=== PATIENT | male | born 1970 | race Caucasian/White ===

== ENCOUNTER → 2019-08-10 | Outpatient (CLI) | payer OTHER ==
[2016-08-08 08:59] VITALS: BP 127/85
[~2019-08-10] MED LIST: ACET650S PO; ATOR20TA58 PO; CALC1TAB59 PO; CARB200T PO; DOCU100C28 PO; FAMO-63 PO; HYDR28.423 TP; LEVE500T6 PO; LISI10TA2 PO; LORA10TA3 PO; NYST1POW5 MC; OMEP20CA16 PO; ONDA4TAB12 PO; POTASSIUM CHLO10 ME1 PO
--- NOTE | 2019-08-10 14:41 | RAD ---
Left lower extremity arterial duplex ultrasound 08/10/2019 INDICATION: Nonhealing wound, left fifth toe COMPARISON STUDY: None Discussion: Ultrasound evaluation of the major arteries of left lower extremity were performed including color Doppler imaging spectral analysis. Essentially normal waveforms and velocities are seen throughout the major arteries of left lower extremity. No significant atherosclerotic plaquing is identified. No high-grade visual stenosis is identified on color Doppler imaging. No focal elevation in velocity suggestive of hemodynamically significant stenosis is seen. IMPRESSION: Unremarkable sonographic appearance of the major arteries of left lower extremity Electronically signed by: Freddie Ferguson MD (08/10/2019 2:38 PM) [facility]
== END | disposition home or self-care (01) ==
LOC: US 12:05
PROVIDERS: ATTEND Emergency Medicine Undersea and Hyperbaric Medicine
DX: S91.205A Unspecified open wound of left lesser toe(s) with damage to nail, initial encounter (principal); X58.XXXA Exposure to other specified factors, initial encounter; Y93.89 Activity, other specified; Y92.89 Other specified places as the place of occurrence of the external cause; Y99.8 Other external cause status
CPT/HCPCS: 93926

== ENCOUNTER 2019-09-09 15:49 | Emergency (ER) | payer OTHER ==
[~2019-09-09] VITALS: Ht 165.1 cm; Wt 45.4 kg
[~2019-09-09 15:49] MED LIST changes: -ACET650S PO; -HYDROmorphone 2 MG/ML VIAL IV PRN; -IV RINGERS,LACTATED 1000ML 1,000 ML IV ONE; -IV RINGERS,LACTATED 1000ML 1,000 ML IV SCH; -LIDOCAINE 2% PF 5 ML VIAL. ONE; -MORPHINE SULFATE 2 MG/ML VIAL. IV PRN; -ONDA4TAB12 PO; -ONDANSETRON PF 4 MG/2 ML VIAL. IV PRN; -PROCHLORPERAZINE 10 MG/2 ML VIAL. IV PRN; -PROPOFOL 20 ML IV ONE; -fentaNYL PF VIAL 100 MCG/2 ML VIAL IV PRN
[2019-09-09] MEDS ORDERED: ONDANSETRON PF 4 MG/2 ML VIAL. IVP ONE (17:15)
[2019-09-09] MEDS ORDERED: IV NORMAL SALINE 1000ML BAG 1,000 ML IV ONE (17:15)
[2019-09-09] MEDS ORDERED: FAMOTIDINE 20 MG/2 ML VIAL IVP ONE (17:15)
[2019-09-09 17:20] VITALS: BP 133/58
[2019-09-09 17:37] LABS: BASO % 0 % (0-3); EOS % 0 % (0-3); HEMATOCRIT 39.9 % (39.0-53.0); HEMOGLOBIN 13.1 g/dL (13.0-17.5); LYMPH # 1.4 x10^3/uL (1.0-4.8); LYMPH % 11 % (24-48); MEAN CORPUSCULAR HEMOGLOBIN 29 pg (25-35); MEAN CORPUSCULAR HGB CONC 33 g/dL (31-37); MEAN CORPUSCULAR VOLUME 89 fL (79-100); MONO # 1.1 x10^3/uL (0.0-1.1); MONO % 8 % (0-9); NEUT % 81 % (31-73); PLATELET COUNT 191 x10^3/uL (140-400); RED BLOOD COUNT 4.51 x10^6/uL (4.30-5.70); WHITE BLOOD COUNT 13.6 x10^3/uL (4.0-11.0)
[2019-09-09 17:44] LABS: CALCIUM 9.2 mg/dL (8.5-10.1); CREATININE 0.6 mg/dL (0.7-1.3); GFR 142.6; POTASSIUM 3.5 mmol/L (3.5-5.1)
[2019-09-09 17:50] LABS: ALBUMIN 3.7 g/dL (3.4-5.0); ALBUMIN/GLOBULIN RATIO 0.9 (1.0-1.7); TOTAL BILIRUBIN 0.2 mg/dL (0.2-1.0); TOTAL PROTEIN 7.6 g/dL (6.4-8.2)
[2019-09-09] MEDS ORDERED: CONTRAST GIVEN. MC PRN (18:00)
--- NOTE | 2019-09-09 18:24 | RAD ---
Exam: CT abdomen and pelvis with contrast INDICATION: Vomiting post colonoscopy TECHNIQUE: Sequential axial images through the abdomen and pelvis obtained following the administration of 75 mL of Omni 300 IV contrast. Sagittal and coronal reformatted images were reconstructed from the axial data and reviewed. Comparisons: None FINDINGS: Heart size is normal. No pericardial effusion. Visualized lung bases are clear. No pleural effusion. Liver, pancreas, and adrenals are unremarkable. Spleen is not enlarged. Kidneys demonstrate symmetric enhancement. No perinephric inflammation or hydronephrosis. No renal or ureteral calculi are identified. Bladder is partially distended and appears thin-walled. Prostate is not enlarged. Bilateral undescended testicles are noted within the inguinal canals. There is a left lower quadrant ostomy. The remainder of the large and small bowel are unremarkable. No free intra-abdominal air or fluid. No obstruction. Moderate-sized hiatal hernia is noted. Abdominal aorta has a normal course and caliber. Abdominal vasculature is patent. No enlarged abdominal lymph nodes are identified. No suspicious osseous lesions or acute fractures. IMPRESSION: 1. No acute process identified within the abdomen or pelvis. 2. Numerous chronic findings as described above. Exposure: One or more of the following in the visualized dose reduction techniques were utilized for this examination: 1. Automated exposure control 2. Adjustment of the MA and/or KV according to patient size 3. Use of iterative of reconstructive technique Electronically signed by: Tommy Espino MD (09/09/2019 6:20 PM) [id number]
[2019-09-09] MEDS ORDERED: IOHEXOL 300 MG/ML 100ML VIAL. IV ONE (18:30)
[2019-09-09 19:15] LABS: ANISOCYTOSIS SLIGHT; MICROCYTOSIS SLIGHT; PLATELET CLUMP PRESENT; PLT ESTIMATE ADEQUATE (ADEQUATE)
[2019-09-09 19:16] LABS: OVALOCYTES OCC; SCHISTOCYTES OCC
--- NOTE | 2019-09-09 20:00 | PHYS DOC ---
Past Medical History Past Medical History: GERD, Seizure Additional Past Medical Histor: CP, quad (SON JACKSON APRN) Past Surgical History: Other Additional Past Surgical Histo: back, colostomy (SON JACKSON APRN) Smoking Status: Never Smoker Alcohol Use: None Drug Use: None (SON JACKSON APRN) Attending Signature I have participated in the care of this patient and I have reviewed and agree with all pertinent clinical information above including history, exam, and recommendations. (MAGDY FLORES MD) Adult General Chief Complaint Chief Complaint: NAUSEA/VOMITING/DIARRHA HPI HPI Patient is a 49 year old male with history of cerebral palsy, developmental delay who presents to the ED today with a caregiver stating patient had a colonoscopy done this morning, he started vomiting this afternoon. They could not tell if the vomiting is from an anesthesia or something else. They called Dr. Saldaña who requested them to come to the ED to get a CAT scan and lab work. (SON JACKSON APRN) Review of Systems Review of Systems Constitutional: Denies fever or chills [] Eyes: Denies change in visual acuity, redness, or eye pain [] HENT: Denies nasal congestion or sore throat [] Respiratory: Denies cough or shortness of breath [] Cardiovascular: No additional information not addressed in HPI [] GI: Reports vomiting. Denies abdominal pain, bloody stools or diarrhea [] : Denies dysuria or hematuria [] Musculoskeletal: Denies back pain or joint pain [] Integument: Denies rash or skin lesions [] Neurologic: Denies headache, focal weakness or sensory changes [] Endocrine: Denies polyuria or polydipsia [] All other systems were reviewed and found to be within normal limits, except as documented in this note. Review of system was obtained from caregiver (SON JACKSON APRN) Current Medications Current Medications Current Medications Medications (Trade) Dose Ordered Sig/David Start Time Stop Time Status Last Admin Dose Admin Famotidine (Pepcid Vial) 20 mg 1X ONCE 09/09/19 17:15 09/09/19 17:16 DC 09/09/19 17:41 20 MG Info (CONTRAST GIVEN -- Rx MONITORING) 1 each PRN DAILY PRN 09/09/19 18:00 09/09/19 20:50 DC Iohexol (Omnipaque 300 Mg/ml) 75 ml 1X ONCE 09/09/19 18:30 09/09/19 18:31 DC 09/09/19 18:02 75 ML Ondansetron HCl (Zofran) 4 mg 1X ONCE 09/09/19 17:15 09/09/19 17:16 DC 09/09/19 17:41 4 MG Sodium Chloride 1,000 ml @ 1,000 mls/hr 1X ONCE 09/09/19 17:15 09/09/19 18:14 DC 09/09/19 17:41 1,000 MLS/HR (MAGDY FLORES MD) Allergies Allergies Allergies Coded Allergies Type Severity Reaction Last Updated Verified No Known Drug Allergies 09/09/19 No (MAGDY FLORES MD) Physical Exam Physical Exam Constitutional: Celebral palsy patient, well nourished, no acute distress, non- toxic appearance. [] HENT: Normocephalic, atraumatic, bilateral external ears normal, oropharynx moist, no oral exudates, nose normal. [] Eyes: PERRLA, EOMI, conjunctiva normal, no discharge. [] Neck: Normal range of motion, no tenderness, supple, no stridor. [] Cardiovascular:Heart rate regular rhythm, no murmur [] Lungs & Thorax: Bilateral breath sounds clear to auscultation [] Abdomen: Colostomy on the left lower quadrant. Bowel sounds normal, soft, no tenderness, no masses, no pulsatile masses. [] Skin: Warm, dry, no erythema, no rash. [] Back: No tenderness, no CVA tenderness. [] Extremities: Contracted upper and lower extremities from cerebral palsy, No tenderness, no cyanosis, no clubbing, ROM intact, no edema. [] Neurologic: Alert and oriented, normal motor function for his condition, normal sensory function, no focal deficits noted. [] Psychologic: Affect normal, judgement normal, mood normal. [] (SON JACKSON APRN) Current Patient Data Vital Signs Vital Signs Date Time Temp Pulse Resp B/P (MAP) Pulse Ox O2 Delivery O2 Flow Rate FiO2 09/09/19 17:20 99.9 112 133/58 (83) 98 Room Air 99.9 (MAGDY FLORES MD) Lab Values Laboratory Tests Test 09/09/19 17:27 White Blood Count 13.6 x10^3/uL (4.0-11.0) H Red Blood Count 4.51 x10^6/uL (4.30-5.70) Hemoglobin 13.1 g/dL (13.0-17.5) Hematocrit 39.9 % (39.0-53.0) Mean Corpuscular Volume 89 fL (79-100) Mean Corpuscular Hemoglobin 29 pg (25-35) Mean Corpuscular Hemoglobin Concent 33 g/dL (31-37) Red Cell Distribution Width 20.0 % (11.5-14.5) H Platelet Count 191 x10^3/uL (140-400) Neutrophils (%) (Auto) 81 % (31-73) H Lymphocytes (%) (Auto) 11 % (24-48) L Monocytes (%) (Auto) 8 % (0-9) Eosinophils (%) (Auto) 0 % (0-3) Basophils (%) (Auto) 0 % (0-3) Neutrophils # (Auto) 11.0 x10^3/uL (1.8-7.7) H Lymphocytes # (Auto) 1.4 x10^3/uL (1.0-4.8) Monocytes # (Auto) 1.1 x10^3/uL (0.0-1.1) Eosinophils # (Auto) 0.0 x10^3/uL (0.0-0.7) Basophils # (Auto) 0.0 x10^3/uL (0.0-0.2) Platelet Estimate Adequate (ADEQUATE) Platelet Clumps, EDTA Present Anisocytosis Slight Microcytosis Slight Ovalocytes Occ Schistocytes Occ Sodium Level 143 mmol/L (136-145) Potassium Level 3.5 mmol/L (3.5-5.1) Chloride Level 102 mmol/L (98-107) Carbon Dioxide Level 28 mmol/L (21-32) Anion Gap 13 (6-14) Blood Urea Nitrogen 24 mg/dL (8-26) Creatinine 0.6 mg/dL (0.7-1.3) L Estimated GFR (Cockcroft-Gault) 142.6 BUN/Creatinine Ratio 40 (6-20) H Glucose Level 116 mg/dL (70-99) H Calcium Level 9.2 mg/dL (8.5-10.1) Total Bilirubin 0.2 mg/dL (0.2-1.0) Aspartate Amino Transferase (AST) 21 U/L (15-37) Alanine Aminotransferase (ALT) 37 U/L (16-63) Alkaline Phosphatase 85 U/L (46-116) Total Protein 7.6 g/dL (6.4-8.2) Albumin 3.7 g/dL (3.4-5.0) Albumin/Globulin Ratio 0.9 (1.0-1.7) L Lipase 76 U/L (73-393) Laboratory Tests 09/09/19 17:27 Laboratory Tests 09/09/19 17:27 (MAGDY FLORES MD) EKG EKG [] (SON JACKSON APRN) Radiology/Procedures Radiology/Procedures []PROCEDURE: CT ABD PELV W/ IV CONTRST ONLY Exam: CT abdomen and pelvis with contrast INDICATION: Vomiting post colonoscopy TECHNIQUE: Sequential axial images through the abdomen and pelvis obtained following the administration of 75 mL of Omni 300 IV contrast. Sagittal and coronal reformatted images were reconstructed from the axial data and reviewed. Comparisons: None FINDINGS: Heart size is normal. No pericardial effusion. Visualized lung bases are clear. No pleural effusion. Liver, pancreas, and adrenals are unremarkable. Spleen is not enlarged. Kidneys demonstrate symmetric enhancement. No perinephric inflammation or hydronephrosis. No renal or ureteral calculi are identified. Bladder is partially distended and appears thin-walled. Prostate is not enlarged. Bilateral undescended testicles are noted within the inguinal canals. There is a left lower quadrant ostomy. The remainder of the large and small bowel are unremarkable. No free intra-abdominal air or fluid. No obstruction. Moderate-sized hiatal hernia is noted. Abdominal aorta has a normal course and caliber. Abdominal vasculature is patent. No enlarged abdominal lymph nodes are identified. No suspicious osseous lesions or acute fractures. IMPRESSION: 1. No acute process identified within the abdomen or pelvis. 2. Numerous chronic findings as described above. Exposure: One or more of the following in the visualized dose reduction techniques were utilized for this examination: 1. Automated exposure control 2. Adjustment of the MA and/or KV according to patient size 3. Use of iterative of reconstructive technique Electronically signed by: Tommy Casas MD (09/09/2019 6:20 PM) [id number] DICTATED and SIGNED BY: TOMMY CASAS MD DATE: 09/09/19 1820 (SON JACKSON APRN) Course & Med Decision Making Course & Med Decision Making Pertinent Labs and Imaging studies reviewed. (See chart for details) This is a 49-year-old male with history of Celebrex pulses, developmental delay, presenting to the ED today with nausea and vomiting that began after having a colonoscopy this morning. Patient was sent to the ED by GI for lab work and CAT scan. CBC with a WBC of 13.6, CMP with no acute findings, CT of the abdomen and pelvic is negative for any acute findings. Patient was given IV fluids, Pepcid and nausea medicine in the ED. Patient was discharged back to home. He is not had any nausea vomiting in the ED. Given prescription for Zofran. Follow-up with GI and PCP next week. The nausea and vomiting could be caused by anesthetic used in GI lab. (SON JACKSON APRN) Dragon Disclaimer Dragon Disclaimer This electronic medical record was generated, in whole or in part, using a voice recognition dictation system. (SON JACKSON APRN) Departure Departure Impression: Primary Impression: Nausea and vomiting after administration of anesthetic agent Disposition: HOME, SELF-CARE Condition: STABLE Referrals: TIA CHURCHILL MD (PCP) follow up next week SHRUTI NAVARRETE MD follow up next week Patient Instructions: Nausea and Vomiting, [id number] Additional Instructions: Jaya was evaluated for nausea and vomiting, Please give him Zofran for nausea or vomiting. Follow-up with his own primary care doctor and GI doctor on Thursday. Scripts Acetaminophen (ACETAMINOPHEN ORAL LIQUID ) 650 Mg/20.3 Ml Solution 650 MG PO PRN Q6HRS PRN for MILD PAIN / TEMP, #120 ML Prov: SON JACKSON APRN 09/09/19 Ondansetron (ONDANSETRON ODT) 4 Mg Tab.rapdis 1 TAB PO PRN Q6-8HRS, #16 TAB Prov: SON JACKSON APRN 09/09/19 SON JACKSON APRN Sep 09, 2019 20:00 MAGDY FLORES MD Sep 09, 2019 22:27
[2019-09-09] MEDS ORDERED: ONDA4TAB12 PO (20:10)
[2019-09-09] MEDS ORDERED: ACET650S PO (20:47)
== END 2019-09-09 20:26 | disposition home or self-care (01) ==
LOC: ER 15:49
DX: R11.2 Nausea with vomiting, unspecified (principal); K21.9 Gastro-esophageal reflux disease without esophagitis; Z90.89 Acquired absence of other organs; Z98.890 Other specified postprocedural states
CPT/HCPCS: 36415; 74177; 80053; 83690; 85025; 96361; 96374; 96375; 99285; J2405; J3490; J7030; Q9967

== ENCOUNTER → 2019-09-09 | Day surgery (SDC) | payer OTHER ==
[~2019-09-09] MED LIST changes: +HYDROmorphone 2 MG/ML VIAL IV PRN; +IV RINGERS,LACTATED 1000ML 1,000 ML IV ONE; +IV RINGERS,LACTATED 1000ML 1,000 ML IV SCH; +LIDOCAINE 2% PF 5 ML VIAL. ONE; +MORPHINE SULFATE 2 MG/ML VIAL. IV PRN; +ONDANSETRON PF 4 MG/2 ML VIAL. IV PRN; +PROCHLORPERAZINE 10 MG/2 ML VIAL. IV PRN; +PROPOFOL 20 ML IV ONE; +fentaNYL PF VIAL 100 MCG/2 ML VIAL IV PRN
[2019-09-09 09:21] VITALS: BP 97/77
--- NOTE | 2019-09-12 15:52 | PATHOLOGY ---
[facility] Accession Number: [id number] . 01 Material submitted: . PART A: esophagus - BIOPSY DISTAL ESOPHAGUS. Modifiers: distal PART B: cecum - CECAL POLYP . 01 Clinical history: . Pre-op diagnosis: Anemia Post-op diagnosis: Chronic reflux, esophagitis A: R/O Ruff's . 02 Diagnosis: A. Esophageal biopsies, distal esophagus: - Acute esophagitis. . B. Colon biopsies, cecal polyp: - Tubular adenoma. . (JPM:juan manuel; 09/12/2019) S 09/12/2019 0930 Local . 02 Comment: Sections of the distal esophageal biopsy reveal segments of hyperplastic squamous esophageal mucosa showing focal intraepithelial neutrophils along with segments of acute necroinflammatory exudate. There are no viral inclusions identified. The findings could be compatible with a reflux esophagitis with ulceration. There is no evidence of Ruff's change, dysplasia, or malignancy. . Sections of the cecal biopsy reveal a tubular adenoma showing no high-grade dysplasia or evidence of malignancy. (JPM:juan manuel; 09/12/2019) . 02 Electronically signed: . Gerry Mcduffie MD, Pathologist NPI- [id number] . 01 Gross description: . A. The specimen is received in formalin, labeled "Jaya Kg, biopsy distal esophagus, R/O Ruff's". Received are three segments of pale singh soft tissue ranging in size from 0.2 to 0.3 cm in maximum dimensions. The specimen is submitted entirely in cassette A1. . B. The specimen is received in formalin, labeled "Jaya Kg, cecal polyp". Received are three segments of pale singh soft tissue ranging in size from 0.5 to 0.6 cm in maximum dimensions. The specimen is submitted entirely in cassette B1. (CAA; 09/09/2019) QAC/QAC 09/09/2019 1606 Local . 02 Pathologist provided ICD-10: K20.9, D12.0 . 02 CPT . 613709, 885626 Specimen Comment: A courtesy copy of this report has been sent to [phone], [phone] Specimen Comment: [id number] Specimen Comment: Report sent to / DR CHURCHILL Performed at: [facility] [address] [facility] [address], [place] [id number] MD Aguila Srivastava MD Phone: [phone] Performed at: 02 [facility] [address] [place], [place] [id number] MD Gerry Mcduffie MD Phone: [phone]
== END | disposition home or self-care (01) ==
LOC: SURG 07:54
PROVIDERS: ATTEND Internal Medicine Gastroenterology
DX: K92.2 Gastrointestinal hemorrhage, unspecified (principal); K21.0 Gastro-esophageal reflux disease with esophagitis; D12.0 Benign neoplasm of cecum; K64.0 First degree hemorrhoids; D50.9 Iron deficiency anemia, unspecified; Z98.0 Intestinal bypass and anastomosis status; Z93.3 Colostomy status
CPT/HCPCS: 43239; 44394; 88305; J2001; J2704; 45385

== ENCOUNTER 2021-08-23 11:06 | Emergency (ER) | payer OTHER ==
[~2021-08-23] VITALS: Ht 165.1 cm; Wt 45.4 kg
[~2021-08-23 11:06] MED LIST changes: +ACET650S PO; +LISI10TA16 PO; -LISI10TA2 PO; +ONDA4TAB12 PO
[2021-08-23] MEDS ORDERED: IV NORMAL SALINE 1000ML BAG 1,000 ML IV ONE (12:15)
[2021-08-23] MEDS ORDERED: METOCLOPRAMIDE HCL 10 MG/2 ML VIAL. IVP ONE (12:15)
--- NOTE | 2021-08-23 12:24 | PHYS DOC ---
Past Medical History Past Medical History: GERD, Seizure Additional Past Medical Histor: CEREBRAL PALSY,QUADRAPLEGIC,CONTRACTURES,MR,DEVELOPMENTALLY DELAYED Past Surgical History: Other Additional Past Surgical Histo: back,colostomy Smoking Status: Never Smoker Alcohol Use: None Drug Use: None General Adult EDM: Chief Complaint: NAUSEA/VOMITING/DIARRHEA HPI: HPI: Is a 51-year-old male that presents today with his salesforce administrator for nausea and diarrhea. Per the salesforce administrator patient has a history of developmental delays and c erebral palsy he is bed ridden and does not normally walk he is nonverbal on a normal basis she states that today this morning he had an episode of vomiting this morning she states that he has had some diarrhea in his colostomy bag which is not normal for him, and she states he has also had a cough over the last couple of days she is concerned for any medical process that may going on. According to the salesforce administrator at the bedside he is in his normal state of mind and is acting appropriate per his norm. Patient has has both of his COVID vaccinations along with his influenza. Patient does live in a prison and he has a personal salesforce administrator on a daily basis. Review of Systems: Review of Systems: Unable to complete review of systems since patient is nonverbal and is unable to communicate with the staff. Refer the HPI for the review of systems. Heart Score: C/O Chest Pain: N/A Risk Factors: Risk Factors: DM, Current or recent (<one month) smoker, HTN, HLP, family history of CAD, obesity. Risk Scores: Score 0 - 3: 2.5% MACE over next 6 weeks - Discharge Home Score 4 - 6: 20.3% MACE over next 6 weeks - Admit for Clinical Observation Score 7 - 10: 72.7% MACE over next 6 weeks - Early Invasive Strategies Current Medications: Current Medications Medications (Trade) Dose Ordered Sig/David Start Time Stop Time Status Last Admin Dose Admin Metoclopramide HCl (Reglan Vial) 10 mg 1X ONCE 08/23/21 12:15 08/23/21 12:16 DC Sodium Chloride 1,000 ml @ 999 mls/hr 1X ONCE 08/23/21 12:15 08/23/21 13:15 Allergies: Allergies: Allergies Coded Allergies Type Severity Reaction Last Updated Verified No Known Drug Allergies 09/09/19 No Physical Exam: PE: Constitutional: Celebral palsy patient, well nourished, no acute distress, non- toxic appearance. [] HENT: Normocephalic, atraumatic, bilateral external ears normal, oropharynx moist, no oral exudates, nose normal. [] Eyes: PERRLA, EOMI, conjunctiva normal, no discharge. [] Neck: Normal range of motion, no tenderness, supple, no stridor. [] Cardiovascular:Heart rate regular rhythm, no murmur [] Lungs & Thorax: Bilateral breath sounds clear to auscultation [] Abdomen: Colostomy on the left lower quadrant. Bowel sounds normal, soft, no tenderness, no masses, no pulsatile masses. [] Skin: Warm, dry, no erythema, no rash. [] Back: No tenderness, no CVA tenderness. [] Extremities: Contracted upper and lower extremities from cerebral palsy, No tenderness, no cyanosis, no clubbing, ROM intact, no edema. [] Neurologic: Alert and oriented, normal motor function for his condition, normal sensory function, no focal deficits noted. [] Psychologic: Affect normal, judgement normal, mood normal. [] Current Patient Data: Labs: Laboratory Tests Test 08/23/21 12:45 08/23/21 13:07 08/23/21 15:15 White Blood Count 6.9 x10^3/uL Red Blood Count 4.52 x10^6/uL Hemoglobin 14.2 g/dL Hematocrit 42.0 % Mean Corpuscular Volume 93 fL Mean Corpuscular Hemoglobin 31 pg Mean Corpuscular Hemoglobin Concent 34 g/dL Red Cell Distribution Width 14.3 % Platelet Count 287 x10^3/uL Neutrophils (%) (Auto) 77 % Lymphocytes (%) (Auto) 12 % Monocytes (%) (Auto) 9 % Eosinophils (%) (Auto) 1 % Basophils (%) (Auto) 0 % Neutrophils # (Auto) 5.4 x10^3/uL Lymphocytes # (Auto) 0.8 x10^3/uL Monocytes # (Auto) 0.7 x10^3/uL Eosinophils # (Auto) 0.0 x10^3/uL Basophils # (Auto) 0.0 x10^3/uL Urine Collection Type U cath Urine Color [place]achelle Urine Clarity Hazy Urine pH 5.5 Urine Specific [place] >=1.030 Urine Protein 100 mg/dL Urine Glucose (UA) Negative mg/dL Urine Ketones (Stick) 15 mg/dL Urine Blood Moderate Urine Nitrite Negative Urine Bilirubin Small Urine Urobilinogen Dipstick 0.2 mg/dL Urine Leukocyte Esterase Moderate Urine RBC 3-5 /HPF Urine WBC 20-40 /HPF Urine Bacteria Moderate /HPF Urine Mucus Marked /LPF Sodium Level 141 mmol/L Potassium Level 3.8 mmol/L Chloride Level 108 mmol/L Carbon Dioxide Level 24 mmol/L Anion Gap 9 Blood Urea Nitrogen 16 mg/dL Creatinine 0.5 mg/dL Estimated GFR (Cockcroft-Gault) 174.6 BUN/Creatinine Ratio 32 Glucose Level 93 mg/dL Calcium Level 8.5 mg/dL Total Bilirubin 0.1 mg/dL Aspartate Amino Transf (AST/SGOT) 21 U/L Alanine Aminotransferase (ALT/SGPT) 32 U/L Alkaline Phosphatase 94 U/L Total Protein 8.4 g/dL Albumin 2.8 g/dL Albumin/Globulin Ratio 0.5 Current Medications Medications (Trade) Dose Ordered Sig/David Route PRN Reason Start Time Stop Time Status Last Admin Dose Admin Sodium Chloride 1,000 ml @ 999 mls/hr 1X ONCE IV 08/23/21 12:15 08/23/21 13:15 DC 08/23/21 12:55 Metoclopramide HCl (Reglan Vial) 10 mg 1X ONCE IVP 08/23/21 12:15 08/23/21 12:16 DC 08/23/21 12:55 Iohexol (Omnipaque 300 Mg/ml) 75 ml 1X ONCE IV 08/23/21 15:45 08/23/21 15:46 DC 08/23/21 15:57 Info (CONTRAST GIVEN -- Rx MONITORING) 1 each PRN DAILY PRN MC SEE COMMENTS 08/23/21 15:45 08/25/21 15:44 Ceftriaxone Sodium (Rocephin) 1 gm 1X ONCE IVP 08/23/21 17:00 08/23/21 17:01 08/23/21 16:36 Vital Signs: Vital Signs Date Time Temp Pulse Resp B/P (MAP) Pulse Ox O2 Delivery O2 Flow Rate FiO2 08/23/21 17:10 74 18 112/72 (85) 98 Room Air 08/23/21 16:41 68 114/71 (85) 100 Room Air 08/23/21 16:11 70 105/63 (77) 99 Room Air 08/23/21 15:57 115/73 (87) Room Air 08/23/21 15:41 70 103/64 (77) 100 Room Air 08/23/21 15:11 78 135/79 (97) 100 Room Air 08/23/21 14:41 76 121/60 (80) 99 Room Air 08/23/21 14:11 76 115/68 (84) 98 Room Air 08/23/21 13:41 78 126/73 (90) 99 Room Air 08/23/21 13:11 92 114/76 (89) 95 Room Air 08/23/21 12:11 96 125/86 (99) 96 Room Air 08/23/21 11:31 98.4 87 20 114/89 (97) 97 Room Air 98.4 Vital Signs Date Time Temp Pulse Resp B/P (MAP) Pulse Ox O2 Delivery O2 Flow Rate FiO2 08/23/21 12:11 96 125/86 (99) 96 Room Air 08/23/21 11:31 98.4 20 98.4 EKG: EKG: [] Radiology/Procedures: Radiology/Procedures: REASON: abdominal pain PROCEDURE: CT ABD PELV W/ IV CONTRST ONLY INDICATION: Reason: abdominal pain / Spl. Instructions: omni 300 75ml / History: COMPARISON: September 2019 TECHNIQUE: Axial CT images were obtained through the abdomen and pelvis with intravenous contrast. One or more of the following individualized dose reduction techniques were utilized for this examination: 1. Automated exposure control; 2. Adjustment of the mA and/or kV according to patient size; 3. Use of iterative reconstruction technique. FINDINGS: Mild opacities at left lung base. Moderate hiatal hernia. Scoliotic curvature of the spine with scoliosis rods as well as multilevel central canal and neural foraminal stenosis. Artifact from the rods limited exam. Vascular: Calcific atherosclerosis is seen. Hepatobiliary: No intrahepatic biliary duct dilation. Pancreas: No peripancreatic edema. Spleen: Spleen unremarkable. Renal/Bladder: No hydronephrosis. Lobulated cortex. Possible low-density lesion lower pole left kidney but limited by artifact. Wall thickening of urinary bladder. Gastrointestinal: Dilatation of the rectal region with stool with some wall thickening. Left lower quadrant ostomy. There are some fluid-filled prominent loops of bowel. This is seen at both large and small bowel. Chronic deformities of the bilateral hips with dysmorphic changes and old fracture with callus. Osseous demineralization. IMPRESSION: * Urinary bladder wall is prominent in thickness. Differential consideration would include both chronic causes such as chronic urinary retention or neurogenic causes but cystitis is also within the differential with a bladder wall lesion also not excluded given this thickening. * Prominent fluid is seen within the large and small bowel. Nonspecific appearance with cause such as enteritis or ileus in the differential. * Hiatal hernia. * Mild groundglass opacities at lung bases which could be secondary to hypoventilatory changes, small airway inflammation or mild edema. * Large amount of stool is seen at the rectum and distal sigmoid with some prominence of the wall. Electronically signed by: Vicente Lemus MD (08/23/2021 4:16 PM) [id number] [] Course & Med Decision Making: Course & Med Decision Making Pertinent Labs and Imaging studies reviewed. (See chart for details) 1630 spoke to mother who is the DPOA for this patient regarding laboratory and radiological results. Did inform her that his urine did show signs of infection, and that is concerning for his abdominal pain and also his nausea that he has been having so we will treat him with some IV ceftriaxone here in the emergency department and write a prescription to be taken at home. Patient did not have a white count and does not appear toxic at this time vital signs are stable and mother feels comfortable taking the patient home. They will be given strict return precautions to return if patient develops a fever, inability to take by mouth fluids or keep any fluids down, or abdominal pain becomes worse. Mother verbalizes understanding of this and agreeable to the plan of care. Wanda Disclaimer: Wanda Disclaimer: This electronic medical record was generated, in whole or in part, using a voice recognition dictation system. Departure Departure Impression: Primary Impression: Urinary tract infection Qualified Codes: N30.01 - Acute cystitis with hematuria Disposition: HOME / SELF CARE / HOMELESS Condition: STABLE Referrals: TIA CHURCHILL MD (PCP) Patient Instructions: Urinary Tract Infection Additional Instructions: Cipro take 1 tablet twice daily for 10 days Follow-up with your primary care physician by phone on Thursday for further management of this urinary tract infection Return to the emergency department if patient develops a fever, change in mental status, abdominal symptoms worsen, or patient is unable to keep any by mouth fluid or medication down. Scripts Ciprofloxacin Hcl (CIPRO) 500 Mg Tablet 1 TAB PO BID for 7 Days, #14 TAB 0 Refills Prov: PAULO TORRES APRN 08/23/21 PAULO TORRES APRN Aug 23, 2021 12:23
[2021-08-23 13:03] LABS: BASO % 0 % (0-3); EOS % 1 % (0-3); HEMOGLOBIN 14.2 g/dL (13.0-17.5); LYMPH # 0.8 x10^3/uL (1.0-4.8); LYMPH % 12 % (24-48); MEAN CORPUSCULAR HEMOGLOBIN 31 pg (25-35); MEAN CORPUSCULAR HGB CONC 34 g/dL (31-37); MEAN CORPUSCULAR VOLUME 93 fL (79-100); MONO # 0.7 x10^3/uL (0.0-1.1); MONO % 9 % (0-9); NEUT # 5.4 x10^3/uL (1.8-7.7); NEUT % 77 % (31-73); PLATELET COUNT 287 x10^3/uL (140-400); RED BLOOD COUNT 4.52 x10^6/uL (4.30-5.70); RED CELL DISTRIBUTION WIDTH 14.3 % (11.5-14.5); WHITE BLOOD COUNT 6.9 x10^3/uL (4.0-11.0)
[2021-08-23 13:19] LABS: BILIRUBIN,URINE SMALL (NEG); COLOR,URINE AMBER; NITRITE,URINE NEGATIVE (NEG); PH,URINE 5.5 (<5.0-8.0); PROTEIN,URINE 100 mg/dL (NEG-TRACE); UROBILINOGEN,URINE 0.2 mg/dL (0.2 mg/dL)
[2021-08-23 13:27] LABS: BACTERIA,URINE MODERATE /HPF (0-FEW); WBC,URINE 20-40 /HPF (0-4)
[2021-08-23 13:28] LABS: CLARITY,URINE HAZY
[2021-08-23 15:33] LABS: CALCIUM 8.5 mg/dL (8.5-10.1); CREATININE 0.5 mg/dL (0.7-1.3); GFR 174.6; POTASSIUM 3.8 mmol/L (3.5-5.1)
[2021-08-23 15:39] LABS: ALBUMIN 2.8 g/dL (3.4-5.0); ALBUMIN/GLOBULIN RATIO 0.5 (1.0-1.7); TOTAL BILIRUBIN 0.1 mg/dL (0.2-1.0); TOTAL PROTEIN 8.4 g/dL (6.4-8.2)
[2021-08-23] MEDS ORDERED: CONTRAST GIVEN. MC PRN (15:45)
[2021-08-23] MEDS ORDERED: IOHEXOL 300 MG/ML 100ML VIAL. IV ONE (15:45)
--- NOTE | 2021-08-23 16:18 | RAD ---
INDICATION: Reason: abdominal pain / Spl. Instructions: omni 300 75ml / History: COMPARISON: September 2019 TECHNIQUE: Axial CT images were obtained through the abdomen and pelvis with intravenous contrast. One or more of the following individualized dose reduction techniques were utilized for this examinat ion: 1. Automated exposure control; 2. Adjustment of the mA and/or kV according to patient size; 3 . Use of iterative reconstruction technique. FINDINGS: Mild opacities at left lung base. Moderate hiatal hernia. Scoliotic curvature of the spine with scoliosis rods as well as multilevel central canal and neural f oraminal stenosis. Artifact from the rods limited exam. Vascular: Calcific atherosclerosis is seen. Hepatobiliary: No intrahepatic biliary duct dilation. Pancreas: No peripancreatic edema. Spleen: Spleen unremarkable. Renal/Bladder: No hydronephrosis. Lobulated cortex. Possible low-density lesion lower pole left kidne y but limited by artifact. Wall thickening of urinary bladder. Gastrointestinal: Dilatation of the rectal region with stool with some wall thickening. Left lower qu adrant ostomy. There are some fluid-filled prominent loops of bowel. This is seen at both large and s mall bowel. Chronic deformities of the bilateral hips with dysmorphic changes and old fracture with callus. [place] us demineralization. IMPRESSION: * Urinary bladder wall is prominent in thickness. Differential consideration would include both chr onic causes such as chronic urinary retention or neurogenic causes but cystitis is also within the di fferential with a bladder wall lesion also not excluded given this thickening. * Prominent fluid is seen within the large and small bowel. Nonspecific appearance with cause such a s enteritis or ileus in the differential. * Hiatal hernia. * Mild groundglass opacities at lung bases which could be secondary to hypoventilatory changes, smal l airway inflammation or mild edema. * Large amount of stool is seen at the rectum and distal sigmoid with some prominence of the wall. Electronically signed by: Vicente Lemus MD (08/23/2021 4:16 PM) [id number]
[2021-08-23] MEDS ORDERED: CIPR500T94 PO (16:51)
[2021-08-23] MEDS ORDERED: cefTRIAXone IV Push 1 GM VIAL. IVP ONE (17:00)
[2021-08-23 17:10] VITALS: BP 112/72
== END 2021-08-23 17:20 | disposition home or self-care (01) ==
LOC: ER 11:06
DX: N30.01 Acute cystitis with hematuria (principal); K21.9 Gastro-esophageal reflux disease without esophagitis
CPT/HCPCS: 36415; 74177; 80053; 81001; 85025; 87086; 96361; 96374; 96375; 99285; J0696; J2765; J7030; Q9967